=== PATIENT | male | born 1990 | race Two or more races ===

== ENCOUNTER 2024-04-14 12:31 | Inpatient (IN) | payer OTHER ==
[~2024-04-14] VITALS: Ht 180.3 cm; Wt 104.5 kg
[2024-04-14 13:22] LABS: BASOPHILS % (AUTO) 0.4 % (0.0-2.0); EOSINOPHILS % (AUTO) 1.2 % (1.0-6.0); HEMATOCRIT 46.6 % (41-53); HEMOGLOBIN 15.5 g/dL (13.5-17.5); LYMPHOCYTES # (AUTO) 2.6 K/uL (1.0-4.8); LYMPHOCYTES % (AUTO) 23.8 % (22.0-44.0); MEAN CORPUSCULAR HEMOGLOBIN 30.5 pg (26.0-34.0); MEAN CORPUSCULAR HGB CONC 33.2 G/dL (31.0-37.0); MEAN CORPUSCULAR VOLUME 92 fL (80-100); MONOCYTES # (AUTO) 0.8 K/uL (0.1-1.0); MONOCYTES % (AUTO) 7.3 % (2.0-9.0); NEUTROPHILS # (AUTO) 7.2 K/uL (1.8-7.7); NEUTROPHILS % (AUTO) 67.3 % (40.0-70.0); PLATELET COUNT (AUTO) 287 K/uL (150-450); RED BLOOD CELL COUNT(AUTO) 5.08 MIL/uL (4.50-5.90); RED CELL DISTRIBUTION WIDTH 13.3 % (11.5-14.5); WHITE BLOOD COUNT (AUTO) 10.7 K/uL (4.5-11.0)
[2024-04-14 13:29] LABS: ANION GAP 5 mmol/L (8-16); CALCIUM, TOTAL 9.1 mg/dL (8.8-10.5); CARBON DIOXIDE 28 mmol/L (22-29); CHLORIDE 103 mmol/L (98-107); CREATININE 1.03 mg/dL (0.60-1.30); GLOMERULAR FILTR. RATE CALC > 60 mL/min (>60); GLUCOSE,RANDOM 100 mg/dL (70-110); POTASSIUM 4.2 mmol/L (3.5-5.1); SODIUM SERUM 136 mmol/L (136-145); UREA NITROGEN, BLOOD 16 mg/dL (7-18)
[2024-04-14 13:44] LABS: ALCOHOL, BLOOD (SERUM) < 3 mg/dL (0-10)
[2024-04-14] MEDS: IBUPROFEN 600 MG TABLET PO ONE (14:29)
[2024-04-14] MEDS: ONDANSETRON 4 MG TABLET PO ONE (14:29)
[2024-04-14] MEDS: ACETAMINOPHEN 500 MG TABLET PO ONE (14:29)
[2024-04-14] MEDS ORDERED: METOCLOPRAMIDE HCL 5 MG/ML 2 ML VIAL IVP PRN (15:45)
[2024-04-14] MEDS ORDERED: LORazepam 2 MG/ML VIAL IVP PRN (15:45)
[2024-04-14] MEDS ORDERED: DICYCLOMINE HCL 10 MG CAPSULE PO PRN (15:45)
[2024-04-14] MEDS ORDERED: LOPERAMIDE HCL 2 MG CAPSULE PO PRN (15:45)
[2024-04-14 15:47] LABS: C-REACTIVE PROTEIN QUANT 0.91 mg/dL (0.00-0.30)
[2024-04-14 15:54] LABS: LACTIC ACID 1.2 mmol/L (0.4-2.0)
[2024-04-14] MEDS: SODIUM CHLORIDE 0.9% 1,000 ML IV ONE (16:03)
[2024-04-14 19:27] LABS: PH,URINE DRUG SCREEN 6.5 (5.0-8.0)
[2024-04-14 19:31] LABS: ALCOHOL, URINE DRUG SCREEN NEGATIVE (NEGATIVE); AMPHET/METH SCREEN,URINE POSITIVE (NEGATIVE); BARBITURATE SCREEN, URINE NEGATIVE (NEGATIVE); BENZODIAZEPINES SCREEN,URINE NEGATIVE (NEGATIVE); CANNABINOID SCREEN,URINE POSITIVE (NEGATIVE); COCAINE SCREEN,URINE NEGATIVE (NEGATIVE); METHADONE SCREEN, URINE NEGATIVE (NEGATIVE); OPIATE SCREEN,URINE NEGATIVE (NEGATIVE); PHENCYCLIDINE SCREEN,URINE NEGATIVE (NEGATIVE)
[2024-04-14] MEDS: TEMAZEPAM 15 MG CAPSULE PO SCH (21:00)
[2024-04-14 21:50] VITALS: BP 119/79; PULSE 78; RESP 18; TEMP 97.6; O2SAT 99
[2024-04-15 04:00] VITALS: BP 121/84; PULSE 93; RESP 20; TEMP 98.1; O2SAT 97
[2024-04-15 08:05] VITALS: BP 118/80; PULSE 77; RESP 18; TEMP 98.2; O2SAT 100
[2024-04-15 16:05] VITALS: BP 134/81; PULSE 98; RESP 18; TEMP 97.9; O2SAT 98
[2024-04-15 20:00] VITALS: BP 134/78; PULSE 99; RESP 20; TEMP 97.6; O2SAT 97
[2024-04-16 05:33] VITALS: BP 121/79; PULSE 61; RESP 19; TEMP 97.6; O2SAT 97
[2024-04-16 07:17] VITALS: BP 126/86; PULSE 79; RESP 18; TEMP 97.7; O2SAT 95
[2024-04-16 19:29] VITALS: BP 134/81; PULSE 113; RESP 20; TEMP 98.5; O2SAT 96
== END 2024-04-16 20:12 | DRG 897 ==
LOC: EMS 12:33 → EDH 15:35 → 6S 21:49
PROVIDERS: ADMIT Internal Medicine; ATTEND Internal Medicine
DX: F11.93 Opioid use, unspecified with withdrawal (principal); F15.90 Other stimulant use, unspecified, uncomplicated
CPT/HCPCS: 80048; 80307; 83605; 85025; 85651; 86140; 87040; 99285; G0480; Q0162